=== PATIENT | female | born 1990 | race Caucasian/White ===

== ENCOUNTER 2022-05-26 07:59 | Outpatient (CLI) | payer OTHER, SELFPAY ==
[2022-05-26 08:25] LABS: Basophils Percent Auto 0.5 % (0.2-1.2); Eosinophils Absolute Auto 0.1 K/mm3 (0-0.3); Eosinophils Percent Auto 1.6 % (0-4.4); Hematocrit 39.5 % (37.0-47.0); Hemoglobin 12.8 g/dL (12.0-15.0); Immature Granulocyte Absolute 0.01 K/mm3 (0.00-0.031); Immature Granulocyte Percent A 0.2 % (0-0.5); Lymphocytes Absolute Auto 1.87 K/mm3 (0.9-3.2); Lymphocytes Percent Auto 30.3 % (18.3-44.2); Mean Corpuscular HGB Conc 32.4 g/dl (32-36); Mean Corpuscular Hemoglobin 30.4 pg (26-34); Mean Corpuscular Volume 93.8 fl (80-100); Mean Platelet Volume 9.5 fl (7.4-10.4); Monocytes Absolute Auto 0.5 K/mm3 (0.1-0.6); Monocytes Percent Auto 8.6 % (2.6-8.5); Neutrophils Absolute Auto 3.6 K/mm3 (1.3-6.7); Neutrophils Percent Auto 58.8 % (45.5-73.1); Platelet Count Result 284 k/mm3 (150-375); Red Blood Count 4.21 M/mm3 (4.2-5.4); Red Cell Distribution Width 12.9 % (11.5-14.5); White Blood Count 6.2 K/mm3 (4.5-10.0)
[2022-05-26 08:37] LABS: Alanine Aminotransferase 17 U/L (6-35); Albumin Level 4.2 g/dL (3.5-5.1); Alkaline Phosphatase 64 U/L (38-126); Anion Gap 10 mmol/L (8-16); Aspartate Amino Transferase 17 U/L (14-36); Bilirubin,Total 0.5 mg/dL (0.2-1.3); Blood Urea Nitrogen 9 mg/dL (7-17); Calcium 8.9 mg/dL (8.4-10.2); Carbon Dioxide 25 mmol/L (22-30); Chloride 105 mmol/L (98-107); Cholesterol 199 mg/dL (0-200); Estimated Glomerular Filt Rate > 60; Glucose 106 mg/dL (65-110); HDL Direct 45 mg/dL; Potassium 3.5 mmol/L (3.4-5.0); Sodium 140 mmol/L (137-145); Triglycerides 118 mg/dL (<150)
[2022-05-26 08:47] LABS: LDL Cholesterol Direct 121 mg/dL
[2022-05-26 09:43] LABS: Free T4 Free Thyroxine Reflex 0.55 ng/dL (0.78-2.19)
== END 2022-05-26 08:00 | disposition home or self-care (01) ==
PROVIDERS: PCP Family Medicine; Visit Provider Physician Assistant
DX: F41.1 Generalized anxiety disorder (principal); Z13.220 Encounter for screening for lipoid disorders
CPT/HCPCS: 36415; 80053; 80061; 84439; 84443; 85025

== ENCOUNTER 2022-12-15 09:20 | Outpatient (CLI) | payer OTHER, SELFPAY ==
[2022-12-15 09:56] LABS: Alanine Aminotransferase 16 U/L (6-35); Albumin Level 4.4 g/dL (3.5-5.1); Alkaline Phosphatase 76 U/L (38-126); Anion Gap 6 mmol/L (8-16); Aspartate Amino Transferase 15 U/L (14-36); Bilirubin,Total 0.5 mg/dL (0.2-1.3); Blood Urea Nitrogen 11 mg/dL (7-17); Calcium 9.1 mg/dL (8.4-10.2); Carbon Dioxide 28 mmol/L (22-30); Chloride 105 mmol/L (98-107); Estimated Glomerular Filt Rate > 60; Glucose 104 mg/dL (65-110); Potassium 4.1 mmol/L (3.4-5.0); Sodium 139 mmol/L (137-145)
[2022-12-15 10:27] LABS: Total Triiodothyronine (T3) 0.91 NG/ML (0.97-1.69)
[2022-12-15 10:28] LABS: Free T4 Free Thyroxine 0.98 ng/mL (0.78-2.19)
== END 2022-12-15 09:21 | disposition home or self-care (01) ==
PROVIDERS: Physician Assistant; PCP Family Medicine; Visit Provider Nurse Practitioner Gerontology
DX: F10.21 Alcohol dependence, in remission (principal); E03.9 Hypothyroidism, unspecified
CPT/HCPCS: 36415; 80053; 84439; 84443; 84480

== ENCOUNTER 2023-04-02 15:39 | Outpatient (CLI) | payer OTHER, SELFPAY ==
[2023-04-02 17:12] LABS: Total Triiodothyronine (T3) 0.96 NG/ML (0.97-1.69)
[2023-04-02 17:40] LABS: Free T4 Free Thyroxine 1.12 ng/mL (0.78-2.19)
== END 2023-04-02 15:40 | disposition home or self-care (01) ==
PROVIDERS: PCP Family Medicine; Visit Provider Family Medicine
DX: E03.9 Hypothyroidism, unspecified (principal)
CPT/HCPCS: 36415; 84439; 84443; 84480

== ENCOUNTER 2023-04-07 08:21 | Outpatient (CLI) | payer OTHER, SELFPAY ==
[2023-04-07 09:03] LABS: Basophils Percent Auto 0.6 % (0.2-1.2); Eosinophils Absolute Auto 0.1 K/mm3 (0-0.3); Eosinophils Percent Auto 1.8 % (0-4.4); Hematocrit 40.9 % (37.0-47.0); Hemoglobin 13.2 g/dL (12.0-15.0); Immature Granulocyte Absolute 0.02 K/mm3 (0.00-0.031); Immature Granulocyte Percent A 0.3 % (0-0.5); Lymphocytes Absolute Auto 2.26 K/mm3 (0.9-3.2); Lymphocytes Percent Auto 33.2 % (18.3-44.2); Mean Corpuscular HGB Conc 32.3 g/dl (32-36); Mean Corpuscular Hemoglobin 29.4 pg (26-34); Mean Corpuscular Volume 91.1 fl (80-100); Mean Platelet Volume 9.3 fl (7.4-10.4); Monocytes Absolute Auto 0.6 K/mm3 (0.1-0.6); Monocytes Percent Auto 9.3 % (2.6-8.5); Neutrophils Absolute Auto 3.7 K/mm3 (1.3-6.7); Neutrophils Percent Auto 54.8 % (45.5-73.1); Platelet Count Result 269 k/mm3 (150-375); Red Blood Count 4.49 M/mm3 (4.2-5.4); Red Cell Distribution Width 12.4 % (11.5-14.5); White Blood Count 6.8 K/mm3 (4.5-10.0)
== END 2023-04-07 08:22 | disposition home or self-care (01) ==
PROVIDERS: PCP Family Medicine; Visit Provider Physician Assistant
DX: R53.83 Other fatigue (principal); N92.0 Excessive and frequent menstruation with regular cycle
CPT/HCPCS: 36415; 82607; 85025

== ENCOUNTER 2024-11-08 07:08 | Outpatient (CLI) | payer BC, SELFPAY ==
--- OUTSIDE RECORDS SUMMARY | 2024-11-08 07:16 | XMS_ITS ---
Author Organization [facility] [employer] [facility] Address [facility] [facility] [address] [place] [address] Care Team Providers Care Feed Crusher Name Role Phone Lele LI, Yolanda Primary Care Provider Luz Diana Unavailable [phone] Allergies No Known Allergies REASON FOR VISIT follow up Medications Medication SIG (Take, Route, Fr equency, Duration) Notes Start Date End Date Status Levo-T 100 MCG 1 tablet in the morn ing on an empty stomach Orally Once a day Active FLUoxetine HCl 10 MG 1 capsule Oral Once a day for 90 days Active Propranolol HCl 10 MG 1 tablet Orally tw ice a day for 30 days Active Atomoxetine HCl 60 MG 1 capsule in the m orning Orally Once a day for 90 days 08/11/2024 12/05/2024 Active Social History Tobacco Use: Social History Observation Description Date Details (start date - stop date) Never Smoker NA - NA Sex Assigned At : Social History Observation Description Sex Assigned At Female Tobacco Control (Standard) Question Answer Notes Tobacco use: Nonsmoker AUDIT-C (Standard) Question Answer Notes Did you have a drink containing alcohol in the p ast year? No Encounters Encounter Location Date Provider Diagnosis [facility] [employer] [facility] [address] [facility] [address] [address] 09/06/2024 Luz Plascencia FELIX (generalized anxiety disorder) F41.1 ; MDD (major depressive disorder), recurrent episode, mild F33.0 and ADHD (attention deficit hyperactivity disorder), combined type F90.2 Assessments Encounter Date Diagnosis (ICD Code) Assessment Notes Treatment Notes Treatment Clinical Notes Section Notes 09/06/2024 FELIX (generalized anxiety disorder) (ICD-10 - F41.1) SSRI/SNRI side effects discussed including but not limited to, gastric upset, nausea, vomiting, diarrhea and/or constipation, weight changes, sexual side effects including loss of libido, increased suicidal thoughts/behavior s in children and young adults, and serotonin syndrome. 09/06/2024 MDD (major depressive disorder), recurrent episode, mild (ICD-10 - F33.0) 09/06/2024 ADHD (attention deficit hyperactivity disorder), combined type (ICD-10 - F90.2) Discussed risks/benefits/al ternatives to atomoxetine, including GI side effects, weight loss, irritability, constipation, sexual dysfunction, increase in blood pressure and liver damage. Patient denies any h/o cardiovascular disease, including hypertension, tachyarrhythmias. 09/06/2024 Other Increase atomoxetine to 60mg daily for ADHD management Patient educated on all medications including potential benefits, side effects, risks. Educated on proper dosing schedule and importance of compliance. Encouraged to establish with counseling; supportive therapy provided. -Assessment and treatment plan reviewed with patient. -Compliance with treatment plan importance discussed. -Discussed the risks/benefits of this medication -Discussed medication side effects. -Contact office if symptoms worsen. -Discussed that it can take up to 6-8 weeks to see full therapeutic effects of psychotropic medications. -Crisis prevention hotline 988. Plan Of Treatment Medication Medication Name Sig Start Date Stop Date Notes FLUoxetine HCl 10 MG 1 capsule Oral Once a day for 90 days Propranolol HCl 10 MG 1 tablet Orally tw ice a day for 30 days Atomoxetine HCl 60 MG 1 capsule in the m orning Orally Once a day for 90 days 08/11/2024 12/05/2024 Treatment Notes Assessment Notes FELIX (generalized anxiety disorder) SSRI/ SNRI side effects discussed including but not limited to, gastric upset, nausea, vomiting, diarrhea and/or constipation, weight changes, sexual side effects including loss of libido, increased suicidal thoughts/behaviors in children and young adults, and serotonin syndrome. ADHD (attention deficit hype ractivity disorder), combined type Discussed risks/benefits/alternatives to atomoxetine, including GI side effects, weight loss, irritability, constipation, sexual dysfunction, increase in blood pressure and liver damage. Patient denies any h/o cardiovascular disease, including hypertension, tachyarrhythmias. Other Increase atomoxetine to 60mg daily for ADHD management Patient educated on all medications including potential benefits, side effects, risks. Educated on proper dosing schedule and importance of compliance. Encouraged to establish with counseling; supportive therapy provided. Next Appt Details Follow Up: 4 Weeks, Reason: medication follow up Provider Name:Luz Kathya Plascencia, 11/16/2024 08:00:00 AM, [address], [facility] [address], [place], [address], Progress Notes * Amauri SOUSAOB:1990 (34 yo F)Acc No.[id number]:09/06/2024 Patient: Rachel DUDLEY Provider: FLORA QUICK :1990 A ge:34 Y S ex:Female Date:09/06/2024 Phone: Address:[address] [place] [address], [address], [facility] Pcp:Yolanda Royal MD Subjective: * Chief Complaints: * F ollow up * HPI: D epression Screening: FELIX-7 (2018 Edition) F eeling nervous, anxious, or on edge?More than half the days, N ot being able to stop or control worrying M ore than half the days, W orrying too much about different things M ore than hafl the days, T rouble relaxing M ore than half the days, B eing so restless that it is hard to sit still N early every day, B ecoming easily annoyed or irritable S everal days, F eeling afraid as if something awful might happen N early every day. C [place]-Suicide Severity Rating Scale: Suicide Risk (CSRS-screener) i n the past one month Have you wished you were or wished you could go to sleep and not wake up? N o, i n the past one month Have you actually had any thoughts of killing yourself? N o, H ave you ever done anything, started to do anything, or prepared to do anything to end your life? N o. D epression screening: PHQ-9 L ittle interest or pleasure in doing things S everal days, F eeling down, depressed, or hopeless S everal days, T rouble falling or staying asleep, or sleeping too much N ot at all, F eeling tired or having little energy M ore than half the days, P oor appetite or overeating M ore than half the days, F eeling bad about yourself or that you are a failure, or have let yourself or your family down S everal days, T rouble concentrating on things, such as reading the newspaper or watching television N early every day, M oving or speaking so slowly that other people could have noticed; or the opposite, being so fidgety or restless that you have been moving around a lot more than usual M ore than half the days, T houghts that you would be better off or of hurting yourself in some way N ot at all. I ntervention D epression Screening Findings P ositve, F ollow-Up for Depression M [facility] treatment assessment, Patient follow-up to return when and if necessary, S uicide Risk Assessment Performed 0 09/06/2024 csrs negative , A dditional Evaluation for Depression P sychiatric interview and evaluation, N ashley of the standardized tool used for adult depression screening: [facility] (PHQ-[facility]). P ast Psychiatric Hospitalizations: Previous psychiatric hospitalizations P revious Psychiatric Hospitalization N o. P ast History of Suicidal attempt H ave you ever attempted suicide in the past N o. Social hx: Single. Lives alone. No children. Parents and boyfriend are support system. Employed at a gym. Medical hx: hypothyroid. denies history of head trauma or seizures. Legal hx: denies Past psychiatric hx- Hx ECT/TMS/esketamine: none Past [facility] admissions/IOP/PHP: rehab in 2021. Previous suicide attempts: denies Family psychiatric hx: Mother- depression, BPD, anxiety (hx ECT); father- anxiety. Previous medications: Fluoxetine (tremors at high dose), Buspar, Citalopram (didnt help). H istory of Presenting Problem: Anxiety w ith excessive worry, with panic attacks, with restlessness, with low energy, which has been long-standing. D epression w ith sad mood, with isolative behavior, with decreased concentration, with decreased energy, with feeling of hopelessness and helplessness- triggered by anxiety. . M ood lability n o hx bess . P sychosis n o hx psychosis . S uicidal ideation d enies . S ubstance abuse Alcohol and cocaine dependence- sober since 2021. Cannabis nightly . A DHD f ails to give close attention to details or makes careless mistakes in schoolwork, work, or other activities, has difficulty sustaining attention in tasks or play activity, forgetful in daily activities, easily distracted by extraneous stimuli, has difficulty organizing tasks and activities, fidgets with hands or feet or squirms in seat. Here for follow up. Atomoxetine started last apt. States I can concentrate better . 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 Reporting some depression, low motivation. Also endorses anxiety, particularily when she is at home alone. Panic attacks happening about three times weekly, mostly at night. Sleep is good, getting about 8-10 hours nightly. Energy is fair. Appetite is decreased, also has started on thyroid medication, has lost about 10 pounds. P sychotherapy with Med eval: Therapy with Med eval P sychotherapy with Medication management Y es, P sychotherapy done Time Spent Minute 1 6 Min, T ype of therapy done S upportive Therapy. * ROS: G eneral / Constitutional: Patient denies c hange in appetite, headache, sleep disturbance, weight gain, weight loss. P sychiatric: Patient denies p sychosis, suicidal thoughts, bess, delusions, auditory / visual hallucinations. P atient complains of p anic attacks, difficulty concentrating, anxiety, depressed mood. [facility] for details. * Medical History: * Surgical History: T ibia repair * Hospitalization/Major Diagno stic Procedure: R ehab June 2022 * Family History: F ather: Anxiety Disorder. M aternal Aunt: None. M aternal Uncle: None. P aternal Aunt: None. P aternal Uncle: None. M other: Anxiety Disorder, hx ECT treatment. P aternal Grandfather: None. P aternal Grandmother: None. M aternal Grandfather: None. M aternal Grandmother: None. B rother: None. S ister: None. S on: None. D stephane: None. * Social History: T obacco Use: T obacco Control (Standard) T obacco use: N onsmoker. D rug/Alcohol: A VERONICA-C (Standard) D id you have a drink containing alcohol in the past year? N o.? M iscellaneous: A dvance Care Planning A re you your own decision-maker Y es, D o you have Power of Portable Sawyer for Health or Medical? Y es. S ocial History: Tonya Cabezas arital Status: Rush ocampo. * Medications: T akingLevo-T 100 MCG Tablet 1 tablet in the morning on an empty stomach Orally Once a day FLUoxetine HCl 10 MG Capsule 1 capsule Oral Once a day Atomoxetine HCl 40 MG Capsule 1 capsule in the morning Orally Once a day , stop date 10/11/2024Taking Levo-T 100 MCG Tablet 1 tablet in the morning on an empty stomach Orally Once a day Taking FLUoxetine HCl 10 MG Capsule 1 capsule Oral Once a day Taking Atomoxetine HCl 40 MG Capsule 1 capsule in the morning Orally Once a day , stop date 10/11/2024Not-TakingPropranolol HCl 10 MG Tablet 1 tablet Orally twice a day Medication List reviewed and reconciled with the patientNot-Taking Propranolol HCl 10 MG Tablet 1 tablet Orally twice a day Medication List reviewed and reconciled with the patient * Allergies: N .K.D.A.no[Allergies Verified] Objective: * Vitals: * Examination: P sychiatry: Appearance: w ell-groomed. Abnormal body movements: n one. Affect / mood: a nxious. Attention: g ood. Attitude: c ooperative. Homicidal ideation: n one. Suicidal ideation: n one. Degree of awareness of surroundings: w ithin normal limits.? Delusions: n o. Hallucinations: n o. Insight: g ood. Judgement: g ood. Orientation: a wake, alert and oriented x 3. Perceptual disorders: n o perceptual disorder noted. Psychomotor activity: w ithin normal range. Speech / language: n ormal rate, volume, and articulation (RVR), clear and coherent, appropriate pitch/modulation. Thought content: a ppropriate. Thought process: i ntact. Assessment: * Assessment: 1. G AD (generalized anxiety disorder) - F41.1 (Primary) 2 . M DD (major depressive disorder), recurrent episode, mild - F33.0 3 . A DHD (attention deficit hyperactivity disorder), combined type - F90.2 Plan: * Treatment: 2. A DHD (attention deficit hyperactivity disorder), combined type Increase Atomoxetine HCl Capsule, 60 MG, 1 capsule in the morning, Orally, Once a day, 90 days, 90 Capsule, Refills 0. Notes: Discussed risks/benefits/alternatives to atomoxetine, including GI side effects, weight loss, irritability, constipation, sexual dysfunction, increase in blood pressure and liver damage. Patient denies any h/o cardiovascular disease, including hypertension, tachyarrhythmias. 3. O thers Notes: Increase atomoxetine to 60mg daily for ADHD management Patient educated on all medications including potential benefits, side effects, risks. Educated on proper dosing schedule and importance of compliance. Encouraged to establish with counseling; supportive therapy provided. Clinical Notes: -Assessment and treatment plan reviewed with patient. -Compliance with treatment plan importance discussed. -Discussed the risks/benefits of this medication -Discussed medication side effects. -Contact office if symptoms worsen. -Discussed that it can take up to 6-8 weeks to see full therapeutic effects of psychotropic medications. -Crisis prevention hotline 988. * Procedure Codes: 9 6127 BEHAV ASSMT W/SCORE & DOCD/STAND [id number] PSYCHOTHERAPY W/PATIENT W/E&M SRVCS 30 [id number] VISIT COMPLEXITY INHERENT TO ONGOING CARE RELATED TO A PATIENT'S SINGLE, SERIOUS CONDITION OR A COMPLEX [id number] CLIN DEPRESSION SCREEN DOC * Follow Up: 4 Weeks (Reason: medication follow up) * Billing Information: * Visit Code: 69967 OFFICE OUTPATIENT VISIT 25 MINUTES DETAILED HISTORY AND EXAM/MODERATE MEDICAL DECISION MAKING. * Procedure Codes: 90611 BEHAV ASSMT W/SCORE & DOCD/STAND INSTRUMENT. 67361 PSYCHOTHERAPY W/PATIENT W/E&M SRVCS 30 MIN. G2211 VISIT COMPLEXITY INHERENT TO ONGOING CARE RELATED TO A PATIENT'S SINGLE, SERIOUS CONDITION OR A COMPLEX CONDITION. G8431 CLIN DEPRESSION SCREEN DOC. * E LEAD Sign off status: Completed true * Provider: FLORA QUICK Date: 09/06/2024 Generated for Fracisco ferrer/Kay/Maren on: 0 11/08/2024 07:16 AM CDT History and Physical Notes * HPI (History of Present Illness) Category Sub-Category Detail Notes Category Not es History of Presenting Problem Anxiety with excessive worry, with p anic attacks, with restlessness, with low energy, which has been long-standing Here for follow up. Atomoxetine started last apt. States I can concentrate better . 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 Reporting some depression, low motivation. Also endorses anxiety, particularily when she is at home alone. Panic attacks happening about three times weekly, mostly at night. Sleep is good, getting about 8-10 hours nightly. Energy is fair. Appetite is decreased, also has started on thyroid medication, has lost about 10 pounds. Depression with sad mood, with isolative behavior, with decreased concentration, with decreased energy, with feeling of hopelessness and helplessness- triggered by anxiety. Substance abuse Alcohol and cocaine dependence- sober since 2021. Cannabis nightly Suicidal ideation denies Psychosis no hx psychosis Mood lability no hx bess ADHD fails to give close attention to details or makes careless mistakes in schoolwork, work, or other activities, has difficulty sustaining attention in tasks or play activity, forgetful in daily activities, easily distracted by extraneous stimuli, has difficulty organizing tasks and activities, fidgets with hands or feet or squirms in seat Past Psychiatric Hospitalizations Previous psychiatric hospitalizations Previous Psychiatric Hospitalization: No Social hx: Single. Lives alone. No children. Parents and boyfriend are support system. Employed at a gym. Medical hx: hypothyroid. denies history of head trauma or seizures. Legal hx: denies Past psychiatric hx- Hx ECT/TMS/esketamine: none Past [facility] admissions/IOP/PHP: rehab in 2021. Previous suicide attempts: denies Family psychiatric hx: Mother- depression, BPD, anxiety (hx ECT); father- anxiety. Previous medications: Fluoxetine (tremors at high dose), Buspar, Citalopram (didnt help). Past History of Suicidal attempt Have yo u ever attempted suicide in the past: No Depression screening PHQ-9 Little inte rest or pleasure in doing things: Several days Feeling down, depressed, or hopeless: Se veral days Trouble falling or staying asleep, or sl eeping too much: Not at all Feeling tired or having little energy: M ore than half the days Poor appetite or overeating: More than h alt[place] the days Feeling bad about yourself o r that you are a failure, or have let yourself or your family down: Several days Trouble concentrating on thi ngs, such as reading the newspaper or watching television: Nearly every day Moving or speaking so slowly that other people could have noticed; or the opposite, being so fidgety or restless that you have been moving around a lot more than usual: More than half the days Thoughts that you would be b panchito off or of hurting yourself in some way: Not at all Intervention Depression Screening Findings: P ositve Follow-Up for Depression: [facility] treatment assessment, Patient follow-up to return when and if necessary Suicide Risk Assessment Performed: 09/06 csrs negative Additional Evaluation for De pression: Psychiatric interview and evaluation Name of the standardized too l used for adult depression screening:: Patient Health Questionnaire (PHQ-9) Depression Screening FELIX-7 (2018 Edition) Feelin g nervous, anxious, or on edge: More than half the days Not being able to stop or control worryi ng: More than half the days Worrying too much about different things : More than hafl the days Trouble relaxing: More than half the day s Being so restless that it is hard to sit still: Nearly every day Becoming easily annoyed or irritable: Se veral days Feeling afraid as if something awful octavia ht happen: Nearly every day Psychotherapy with Med eval Therapy with Med owen l Psychotherapy with Medication management: Yes Psychotherapy done Time Spent Minute: 16 Min Type of therapy done: Supportive Therapy [place]-Suicide Severity Rating Scale Suicide Risk (CSRS-screener) in the past one month Have you wished you were or wished you could go to sleep and not wake up?: No in the past one month Have y ou actually had any thoughts of killing yourself?: No Have you ever done anything, started to do anything, or prepared to do anything to end your life?: No Examination Category Sub-Category Detail Notes Category Not es Psychiatry Appearance: well-groomed Attitude: cooperative Psychomotor activity: within normal rang e Abnormal body movements: none Attention: good Degree of awareness of surroundings: wit hin normal limits Orientation: awake, alert and brayden ented x 3 Affect / mood: anxious Speech / language: normal rate, volume, and articulation (RVR), clear and coherent, appropriate pitch/modulation Insight: good Judgement: good Thought process: intact Thought content: appropriate Perceptual disorders: no perceptual diso rder noted Suicidal ideation: none Homicidal ideation: none Delusions: no Hallucinations: no
--- OUTSIDE RECORDS SUMMARY | 2024-11-08 07:16 | XMS_ITS ---
Author Organization [facility] [employer] [facility] Address [address] [place] [address] Care Team Providers Care Vendor Relationship Manager Name Role Phone Lele LI, Yolanda Primary Care Provider Collette Luz Wheeler Unavailable [phone] REASON FOR VISIT FLUoxetine Medications Medication SIG (Take, Route, Fr equency, Duration) Notes Start Date End Date Status FLUoxetine HCl 40 MG 1 capsule Oral Once a day for 90 days Active Social History Sex Assigned At : Social History Observation Description Sex Assigned At Female Encounters Encounter Location Date Provider Diagnosis [facility] [employer] [facility] [address] [place] [address] 09/29/2024 Luz Plascencia FELIX (generalized anxiety disorder) F41.1 Assessments Encounter Date Diagnosis (ICD Code) Assessment Notes Treatment Notes Treatment Clinical Notes Section Notes 09/29/2024 FELIX (generalized anxiety disorder) (ICD-10 - F41.1) Plan Of Treatment Medication Medication Name Sig Start Date Stop Date Notes FLUoxetine HCl 40 MG 1 capsule Oral Once a day for 90 days Next Appt Details Provider Name:Luz Plascencia, 11/16/2024 08:00:00 AM, [address], [address], [place], [address], Progress Notes * Amauri SOUSAOB:1990 (34 yo F)Acc No.[id number]:09/29/2024 Patient: Rachel DUDLEY :1990 A ge:34 Y S ex:Female Phone: Address:[address] [facility], [place], [address] * Refills Refill FLUoxetine HCl Capsule, 40 MG, Oral, 90, 1 capsule, Once a day, 90 days, Refills=0 Subjective: * Chief Complaints: * F LUoxetine * Medical History: * Surgical History: * Hospitalization/Major Diagno stic Procedure: * Medications: Objective: * Vitals: * Physical Examination: Assessment: * Assessment: 1. G AD (generalized anxiety disorder) - F41.1 Plan: * Treatment: * Procedure Codes: * true * Date: Generated for Fracisco ferrer/Kay/Maren on: 0 11/08/2024 07:16 AM CDT
--- OUTSIDE RECORDS SUMMARY | 2024-11-08 07:17 | XMS_ITS ---
Author Organization [facility] [employer] [facility] Address [facility] [address] [facility] [address] [place] [address] Care Team Providers Care Web Graphic Designer Name Role Phone Lele LI, Yolanda Primary Care Provider Collette Lzu Wheeler Unavailable [phone] REASON FOR VISIT Late cancellation Social History Sex Assigned At : Social History Observation Description Sex Assigned At Female Encounters Encounter Location Date Provider Diagnosis [facility] [place] [id number] [facility] [address] [place] [address] 10/18/2024 Luz Plascencia Plan Of Treatment Next Appt Details Provider Name:Luz Plascencia, 11/16/2024 08:00:00 AM, [address], [facility] [address], [place], [address], Progress Notes * Nazia SOUSAOvidioOB:1990 (34 yo F)Acc No.[id number]:10/18/2024 Patient: Rachel DUDLEY Provider: FLORA QUICK :1990 A ge:34 Y S ex:Female Date:10/18/2024 Phone: Address:[address], [id number] Pcp:Yolanda Royal MD Subjective: * Chief Complaints: * 1 . Late cancellation. * Medical History: Objective: * Vitals: Assessment: Plan: * Treatment: * Procedure Codes: N S NO SHOW * Billing Information: * Visit Code: * Procedure Codes: NS NO SHOW. * PROJECTOR OPERATOR Sign off status: Completed true * Provider: FLORA QUICK Date: 0 10/18/2024 Generated for Fracisco ferrer/Kay/Maren on: 0 11/08/2024 07:16 AM CDT
--- OUTSIDE RECORDS SUMMARY | 2024-11-08 07:17 | XMS_ITS | Patient Health Record ---
Author Organization [facility] Address [address] [facility] [address] [place] [address] Care Team Providers Care Keymodule Assembly Supervisor Name Role Phone Yolanda Royal MD Primary Care Provider Collette Luz Wheeler Unavailable [phone] Cecil Duke Unavailable [phone] Allergies No Known Allergies Results Component Value Reference Range Notes UDT Reviewed date:04/27/2024 05:55:40 PM Interpretation: Performing Lab: Notes/Report: THC P 0 - 50 ng/ml Cocaine N 0 - 300 ng/ml Amphetamine N 0 - 1000 ng/ml Buprenorphine (BUP) N 0 - 10 ng/ml Secobarbital (Bar) N 0 - 300 ng/ml Oxazepam (BZO) N 0 - 300 ng/ml 8-gprjjdgzid-5,6-rwyhyxkx-4,3-diphenylpyrrolidine (DAVID P) N 0 - 300 ng/ml Methamphetamine (MET) N 0 - 1000 ng/ml Methylenedioxymethamphetamine (MDMA) N 0 - 500 ng/ml Morphine (MOP 300/[id number]) N 0 - 300 ng/ml Methadone (MTD) N 0 - 300 ng/ml Phencyclidine (PCP) N 0 - 25 ng/ml Nortriptyline (TCA) N 0 - 1000 ng/ml Oxycodone N 0 - 300 ng/ml x N 0 - 300 ng/ml UDT Reviewed date:04/21/2024 08:47:32 PM Interpretation: Performing Lab: Notes/Report: THC P 0 - 50 ng/ml Cocaine N 0 - 300 ng/ml Amphetamine N 0 - 1000 ng/ml Buprenorphine (BUP) N 0 - 10 ng/ml Secobarbital (Bar) N 0 - 300 ng/ml Oxazepam (BZO) N 0 - 300 ng/ml 3-pefjkxorrh-3,5-snoeipdj-6,3-diphenylpyrrolidine (DAVID P) N 0 - 300 ng/ml Methamphetamine (MET) N 0 - 1000 ng/ml Methylenedioxymethamphetamine (MDMA) N 0 - 500 ng/ml Morphine (MOP 300/[id number]) N 0 - 300 ng/ml Methadone (MTD) N 0 - 300 ng/ml Phencyclidine (PCP) N 0 - 25 ng/ml Nortriptyline (TCA) N 0 - 1000 ng/ml Oxycodone N 0 - 300 ng/ml x N 0 - 300 ng/ml Reason For Referral No Information Medications Medication SIG (Take, Route, Fr equency, Duration) Notes Start Date End Date Status FLUoxetine HCl 40 MG 1 capsule Oral Once a day for 90 days Active Levo-T 100 MCG 1 tablet in the morn ing on an empty stomach Orally Once a day Active Propranolol HCl 10 MG 1 tablet [...] alcohol in the p ast year? No Problems Problem Type SNOMED Code ICD Code Onset Dates Problem Status W/U Status Risk Notes Problem Generalized anxiety disorder (37140921) FELIX (generalized anxiety disorder) (F41.1) Active confirmed Problem Attention deficit hyperactivity disorder (117745536) ADHD (attention deficit hyperactivity disorder), combined type (F90.2) Active confirmed Problem Mild recurrent major depression (80007956) MDD (major depressive disorder), recurrent episode, mild (F33.0) Active confirmed Vital Signs Heart Rate 73 /min 04/21/2024 Height-cm 162.56 cm 04/21/2024 Blood pressure diastolic 75 mm Hg 04/21/2024 Weight-kg 60.33 kg 04/21/2024 Height 64 in 04/21/2024 Blood pressure systolic 112 mm Hg 04/21/2024 Weight 133 lbs 04/21/2024 BMI 22.83 kg/m2 04/21/2024 Procedures Procedure Date Ordered Date Performed Result Body Sit e ADHD Testing 04/21/2024 N/A Encounters Encounter Location Date Provider Diagnosis [address] [facility] [address] [place] [address] 04/21/2024 Luz Plascencia FELIX (generalized anxiety disorder) F41.1 ; MDD (major depressive disorder), recurrent episode, mild F33.0 and ADHD (attention deficit hyperactivity disorder), combined type F90.[address] [facility] [address] [place] [address] 04/27/2024 Cecilisael Duke ADHD (attention defi cit hyperactivity disorder) F90.[address] [facility] [address] [place] [address] 05/02/2024 Luz Plascencia FELIX (generalized anxiety disorder) F41.1 ; MDD (major depressive disorder), recurrent episode, mild F33.0 and ADHD (attention deficit hyperactivity disorder), combined type F90.[address] [facility] [address] [place] [address] 05/30/2024 Luz Plascencia [address] [facility] [address] [place] [address] 09/06/2024 Luz Plascencia FELIX (generalized anxiety disorder) F41.1 ; MDD (major depressive disorder), recurrent episode, mild F33.0 and ADHD (attention deficit hyperactivity disorder), combined type F90.[address] [facility] [address] [place] [address] 10/18/2024 Luz Cartagenaag [address] [facility] [address] [place] [address] 07/11/2024 Luz Plascencia ADHD (attention defi cit hyperactivity disorder), combined type F90.2 [place] [address] [facility] [address] [facility] [address] [place] [address] 07/26/2024 Luz Plascencia [place] [address] [facility] [address] [facility] [address] [place] [address] 08/11/2024 Luz Plascencia ADHD (attention defi cit hyperactivity disorder), combined type F90.[address] [facility] [address] [place] [address] 09/29/2024 Luz Plascencia FELIX (generalized anxiety disorder) F41.1 Assessments Encounter Date Diagnosis (ICD Code) Assessment Notes Treatment Notes Treatment Clinical Notes Section Notes 07/11/2024 ADHD (attention deficit hyperactivity disorder), combined type (ICD-10 - F90.2) 08/11/2024 ADHD (attention deficit hyperactivity disorder), combined type (ICD-10 - F90.2) 04/21/2024 FELIX (generalized anxiety disorder) (ICD-10 - F41.1) 09/29/2024 FELIX (generalized anxiety disorder) (ICD-10 - F41.1) 09/06/2024 FELIX (generalized anxiety disorder) (ICD-10 - F41.1) SSRI/SNRI side effects discussed including but not limited to, gastric upset, nausea, vomiting, diarrhea and/or constipation, weight changes, sexual side effects including loss of libido, increased suicidal thoughts/behavior s in children and young adults, and serotonin syndrome. 04/21/2024 MDD (major depressive disorder), recurrent episode, mild (ICD-10 - F33.0) 04/27/2024 ADHD (attention deficit hyperactivity disorder) (ICD-10 - F90.9) 05/02/2024 FELIX (generalized anxiety disorder) (ICD-10 - F41.1) 04/21/2024 ADHD (attention deficit hyperactivity disorder), combined type (ICD-10 - F90.2) 05/02/2024 MDD (major depressive disorder), recurrent episode, mild (ICD-10 - F33.0) 09/06/2024 MDD (major depressive disorder), recurrent episode, mild (ICD-10 - F33.0) 05/02/2024 ADHD (attention deficit hyperactivity disorder), combined type (ICD-10 - F90.2) 09/06/2024 ADHD (attention deficit hyperactivity disorder), combined type (ICD-10 - F90.2) Discussed risks/benefits/al ternatives to atomoxetine, including GI side effects, weight loss, irritability, constipation, sexual dysfunction, increase in blood pressure and liver damage. Patient denies any h/o cardiovascular disease, including hypertension, tachyarrhythmias. 04/21/2024 Other Start propranolol 10mg BID PRN for anxiety. Continue buspar, fluoxetine per PCP for now. Patient educated on all medications including potential benefits, side effects, risks. Educated on proper dosing schedule and importance of compliance. Schedule for ADHD evaluation to rule in or rule out diagnosis. 05/02/2024 Other ADHD evaluation reviewed, supportive of diagnosis in conjunction with reported symptoms and history. Start atomoxetine 25mg daily for two weeks then 40mg daily. Stopped using cannabis, consider stimulant in future if necessary. Patient educated on all medications including potential benefits, side effects, risks. Educated on proper dosing schedule and importance of compliance. Discussed risks/benefits/al ternatives to atomoxetine, including GI [...] effects of psychotropic medications. -Crisis prevention hotline 783. Plan Of Treatment Pending Test Test Name Order Date ADHD Testing 04/21/2024 Next Appt Details Provider Name:Luz Plascencia, 11/16/2024 08:00:00 AM, [address] [facility] [address], [facility] [address], [place], [address], Insurance Providers Payer Name Payer Address Payer Phone Subscriber Number Group Number Insured Name Patient Relationship to Insured Coverage Start Date Coverage End Date [facility] [address] [place] [address] [id number] Rachel Sousa Self - patient is the insured Medical (General) History Medical History History ICD Code Past Psychiatric History: An xiety Disorder,Panic Disorder,Major Depressive Episode abdominal aortic aneurysm: No atrial fibrillation: No chronic fatigue syndrome: No essential tremor: No hyperlipidemia: No hypertension: No Parkinson's disease: No restless leg syndrome: Yes stroke: No subdural hematoma: No type 1 diabetes mellitus: No type 2 diabetes mellitus: No vitamin B12 deficiency: No vitamin D deficiency: No Surgical History Surgery Date(Month/Year) Tibia repair Hospitalization History Reason Date(Month/Year) Rehab June 2022
[2024-11-08 07:46] LABS: Basophils Percent Auto 0.6 % (0.2-1.2); Eosinophils Absolute Auto 0.2 K/mm3 (0-0.3); Eosinophils Percent Auto 2.4 % (0-4.4); Hematocrit 39.2 % (37.0-47.0); Hemoglobin 12.9 g/dL (12.0-15.0); Immature Granulocyte Absolute 0.01 K/mm3 (0.00-0.031); Immature Granulocyte Percent A 0.1 % (0-0.5); Lymphocytes Absolute Auto 1.94 K/mm3 (0.9-3.2); Lymphocytes Percent Auto 28.7 % (18.3-44.2); Mean Corpuscular HGB Conc 32.9 g/dl (32-36); Mean Corpuscular Hemoglobin 30.7 pg (26-34); Mean Corpuscular Volume 93.3 fl (80-100); Mean Platelet Volume 9.3 fl (7.4-10.4); Monocytes Absolute Auto 0.6 K/mm3 (0.1-0.6); Monocytes Percent Auto 8.6 % (2.6-8.5); Neutrophils Percent Auto 59.6 % (45.5-73.1); Platelet Count Result 289 k/mm3 (150-375); Red Cell Distribution Width 12.4 % (11.5-14.5); White Blood Count 6.8 K/mm3 (4.5-10.0)
[2024-11-08 08:26] LABS: Free T4 Free Thyroxine 0.91 ng/dL (0.78-2.19)
== END 2024-11-08 07:09 | disposition home or self-care (01) ==
LOC: ANHLAB 07:14
PROVIDERS: PCP Family Medicine; Visit Provider Physician Assistant
DX: R53.83 Other fatigue (principal); E07.9 Disorder of thyroid, unspecified
CPT/HCPCS: 36415; 84439; 84443; 85025

== ENCOUNTER 2025-01-05 07:22 | Outpatient (CLI) | payer BC, SELFPAY ==
--- OUTSIDE RECORDS SUMMARY | 2025-01-05 07:27 | XMS_ITS | Patient Health Record ---
Author Organization [facility] [employer] Address [address] [facility] [address] [place] [address] Care Team Providers Care Radioisotope Technician Name Role Phone Yolanda Royal MD Primary Care Provider Collette Luz Tompkins Unavailable [phone] Cecil Duke Unavailable [phone] Allergies No Known Allergies Results Component Value Reference Range Notes UDT Reviewed date:04/27/2024 05:55:40 PM Interpretation: Performing Lab: Notes/Report: THC P 0 - 50 ng/ml Cocaine N 0 - 300 ng/ml Amphetamine N 0 - 1000 ng/ml Buprenorphine (BUP) N 0 - 10 ng/ml Secobarbital (Bar) N 0 - 300 ng/ml Oxazepam (BZO) N 0 - 300 ng/ml 6-hctioedzux-0,3-rxsqoaff-5,3-diphenylpyrrolidine (DAVID P) N 0 - 300 ng/ml Methamphetamine (MET) N 0 - 1000 ng/ml Methylenedioxymethamphetamine (MDMA) N 0 - 500 ng/ml Morphine (MOP 300/[id number]) N 0 - 300 ng/ml Methadone (MTD) [...] Oxazepam (BZO) N 0 - 300 ng/ml 1-oquegdshju-3,8-bqtoxeym-1,3-diphenylpyrrolidine (DAVID P) N 0 - 300 ng/ml Methamphetamine (MET) N 0 - 1000 ng/ml Methylenedioxymethamphetamine (MDMA) N 0 - 500 ng/ml Morphine (MOP 300/OPO3602) N 0 - 300 ng/ml Methadone (MTD) [...] 1 capsule Oral Once a day for 30 days Active Levo-T 100 MCG 1 tablet in the morn ing on an empty stomach Orally Once a day Active Propranolol HCl 10 MG 1 tablet Orally tw ice a day for 30 days Active Atomoxetine HCl 60 MG 1 capsule in the m orning Orally Once a day for 30 days Ac tive Social History Tobacco Use: Social History Observation [...] Status Risk Notes Problem Generalized anxiety disorder (37327658) FELIX (generalized anxiety disorder) (F41.1) Active confirmed Problem Attention deficit hyperactivity disorder (865441993) ADHD (attention deficit hyperactivity disorder), combined type (F90.2) Active confirmed Problem Mild recurrent major depression (50965146) MDD (major depressive disorder), recurrent episode, mild [...] N/A Encounters Encounter Location Date Provider Diagnosis [facility] [address] [place] [address] 04/21/2024 Luz Kurniki FELIX (generalized anxiety disorder) F41.1 ; MDD (major depressive disorder), recurrent episode, mild F33.0 and ADHD (attention deficit hyperactivity disorder), combined type F90.2 [facility] [address] [place] [address] 04/27/2024 Cecil Duke ADHD (attention deficit hyperactivity disorder) F90.9 [facility] [address] [place] [address] 05/02/2024 Luz Kurniki FELIX (generalized anxiety disorder) F41.1 ; MDD (major depressive disorder), recurrent episode, mild F33.0 and ADHD (attention deficit hyperactivity disorder), combined type F90.2 [facility] [address] [place] [address] 05/30/2024 Luz Kurniki [facility], [facility] [address] [place] [address] 09/06/2024 Luz Kurilla FELIX (generalized anxiety disorder) F41.1 ; MDD (major depressive disorder), recurrent episode, mild F33.0 and ADHD (attention deficit hyperactivity disorder), combined type F90.2 [facility] [address] [place] [address] 10/18/2024 Luzedward Guzman [facility], [facility] [address] [place] [address] 11/16/2024 Luz Kurilla [facility], [facility] [address] [place] [address] 07/11/2024 Luz Kurilla ADHD (attention deficit hyperactivity disorder), combined type F90.2 [facility] [address] [place] [address] 07/26/2024 Luz Kurniki [facility], [facility] [address] [place] [address] 08/11/2024 Luz Kurilla ADHD (attention deficit hyperactivity disorder), combined type F90.2 [facility], [facility] [address] [place] [address] 09/29/2024 Luz Guzman FELIX (generalized anxiety disorder) F41.1 [facility] [employer] [facility] [address] [place] [address] 12/27/2024 Luz Guzman FELIX (generalized anxiety disorder) F41.1 Assessments Encounter Date Diagnosis (ICD Code) Assessment Notes Treatment Notes Treatment Clinical Notes Section Notes 08/11/2024 ADHD (attention deficit hyperactivity disorder), combined type (ICD-10 - F90.2) 07/11/2024 ADHD (attention deficit hyperactivity disorder), combined type (ICD-10 - F90.2) 04/21/2024 FELIX (generalized anxiety disorder) (ICD-10 - F41.1) 04/27/2024 ADHD (attention deficit hyperactivity disorder) (ICD-10 - F90.9) 05/02/2024 FELIX (generalized anxiety disorder) (ICD-10 - F41.1) 04/21/2024 MDD (major depressive disorder), recurrent episode, mild (ICD-10 - F33.0) 12/27/2024 FELIX (generalized anxiety disorder) (ICD-10 - F41.1) 09/29/2024 FELIX (generalized anxiety disorder) (ICD-10 - F41.1) 09/06/2024 FELIX (generalized anxiety disorder) (ICD-10 - F41.1) SSRI/SNRI side effects discussed including but not limited to, gastric upset, nausea, vomiting, diarrhea and/or constipation, weight changes, sexual side effects including loss of libido, increased suicidal thoughts/behavior s in children and young adults, and serotonin syndrome. 04/21/2024 ADHD (attention deficit hyperactivity disorder), combined type (ICD-10 - F90.2) 09/06/2024 MDD (major depressive disorder), recurrent episode, mild (ICD-10 - F33.0) 05/02/2024 MDD (major depressive disorder), recurrent episode, mild (ICD-10 - F33.0) 09/06/2024 ADHD (attention deficit hyperactivity disorder), combined type (ICD-10 - F90.2) Discussed risks/benefits/al ternatives to atomoxetine, including GI side effects, weight loss, irritability, constipation, sexual dysfunction, increase in blood pressure and liver damage. Patient denies any h/o cardiovascular disease, including hypertension, tachyarrhythmias. 05/02/2024 ADHD (attention deficit hyperactivity disorder), combined type (ICD-10 - F90.2) 04/21/2024 Other Start propranolol 10mg BID PRN [...] effects of psychotropic medications. -Crisis prevention hotline 429. Plan Of Treatment Pending Test Test Name Order Date ADHD Testing 04/21/2024 Next Appt Details Provider Name:Luz jordan, 01/27/2025 08:30:00 AM, [address], [facility] [address], [place], [address], Insurance Providers Payer Name Payer Address Payer Phone Subscriber Number Group Number Insured Name Patient Relationship to Insured Coverage Start Date Coverage End Date [facility] [address] [place] [address] [id number] Rachel Sousa Self - patient is [...]
[2025-01-05 08:22] LABS: Free T4 Free Thyroxine 1.19 ng/dL (0.78-2.19)
== END 2025-01-05 07:23 | disposition home or self-care (01) ==
LOC: ANHLAB 07:24
PROVIDERS: PCP Family Medicine; Visit Provider Student in an Organized Health Care Education/Training Program
DX: E03.9 Hypothyroidism, unspecified (principal)
CPT/HCPCS: 36415; 84439; 84443

== ENCOUNTER 2025-03-10 07:21 | Outpatient (CLI) | payer BC, SELFPAY ==
--- OUTSIDE RECORDS SUMMARY | 2025-03-10 07:24 | XMS_ITS | Patient Health Record ---
Author Organization [facility] [employer] [facility] Address [address] [facility] [address] [place] [address] Care Team Providers Care Piping Drafter Name Role Phone Yolanda Royal MD Primary Care Provider Collette Luz Tompkins Unavailable [phone] Cecil Duke Unavailable [phone] Allergies No Known Allergies Results Component Value Reference Range Notes UDT Reviewed date:04/27/2024 05:55:40 PM Interpretation: Performing Lab: Notes/Report: THC P 0 - 50 ng/ml Cocaine N 0 - 300 ng/ml Amphetamine N 0 - 1000 ng/ml Buprenorphine (BUP) N 0 - 10 ng/ml Secobarbital (Bar) N 0 - 300 ng/ml Oxazepam (BZO) N 0 - 300 ng/ml 9-bpmnjezlcy-2,4-ynhtebvs-5,3-diphenylpyrrolidine (DAVID P) N 0 - 300 ng/ml Methamphetamine (MET) N 0 - 1000 ng/ml Methylenedioxymethamphetamine (MDMA) N 0 - 500 ng/ml Morphine (MOP 300/[id number]) N 0 - 300 ng/ml Methadone (MTD) [...] Oxazepam (BZO) N 0 - 300 ng/ml 9-xibgxgyvri-8,8-idqidnir-6,3-diphenylpyrrolidine (DAVID P) N 0 - 300 ng/ml Methamphetamine (MET) N 0 - 1000 ng/ml Methylenedioxymethamphetamine (MDMA) N 0 - 500 ng/ml Morphine (MOP 300/[id number]) N 0 - 300 ng/ml Methadone (MTD) [...] 40 MG 1 capsule Oral Once a day; Duration: 30 days Active Levo-T 100 MCG 1 tablet in the morn ing on an empty stomach Orally Once a day Active Propranolol HCl 10 MG 1 tablet Orally tw ice a day; Duration: 30 days Active Atomoxetine HCl 60 MG 1 capsule in the m orning Orally Once a day; Duration: 30 days Active Social History Tobacco Use: Social History [...] Status Risk Notes Problem Generalized anxiety disorder (67447818) FELIX (generalized anxiety disorder) (F41.1) Active confirmed Problem Attention deficit hyperactivity disorder (310560530) ADHD (attention deficit hyperactivity disorder), combined type (F90.2) Active confirmed Problem MDD (major depressive disorder), recurrent episode, mild [...] N/A Encounters Encounter Location Date Provider Diagnosis [facility] [address] [place] [address] 04/21/2024 Luz Guzman FELIX (generalized anxiety disorder) F41.1 ; MDD (major depressive disorder), recurrent episode, mild F33.0 and ADHD (attention deficit hyperactivity disorder), combined type F90.2 [facility], [facility] [address] [place] [address] 04/27/2024 Cecil Duke ADHD (attention deficit hyperactivity disorder) F90.9 [facility] [address] [place] [address] 05/02/2024 Luz Guzman FELIX (generalized anxiety disorder) F41.1 ; MDD (major depressive disorder), recurrent episode, mild F33.0 and ADHD (attention deficit hyperactivity disorder), combined type F90.2 [facility] [address] [place] [address] 05/30/2024 Luz Guzman [facility], [facility] [address] [place] [address] 09/06/2024 Luz Guzman FELIX (generalized anxiety disorder) F41.1 ; MDD (major depressive disorder), recurrent episode, mild F33.0 and ADHD (attention deficit hyperactivity disorder), combined type F90.2 [facility] [address] [place] [address] 10/18/2024 Luz Guzman [facility], [facility] [address] [place] [address] 11/16/2024 Luzedward Guzman [facility], [facility] [address] [place] [address] 01/27/2025 Luz Guzman [facility], [facility] [address] [place] [address] 07/11/2024 Luz Guzman ADHD (attention deficit hyperactivity disorder), combined type F90.2 [facility], [facility] [address] [place] [address] 07/26/2024 Luz Guzman [facility], [facility] [address] [place] [address] 08/11/2024 Luz Guzman ADHD (attention deficit hyperactivity disorder), combined type F90.2 [facility] [address] [place] [address] 09/29/2024 Luz Guzman FELIX (generalized anxiety disorder) F41.1 [facility] [address] [place] [address] 12/27/2024 Luz Guzman FELIX (generalized anxiety disorder) F41.1 Assessments Encounter Date Diagnosis (ICD Code) Assessment Notes Treatment Notes Treatment Clinical Notes Section Notes 07/11/2024 ADHD (attention deficit hyperactivity disorder), combined type (ICD-10 - F90.2) 08/11/2024 ADHD (attention deficit hyperactivity disorder), combined type (ICD-10 - F90.2) 04/21/2024 FELIX (generalized anxiety disorder) (ICD-10 - F41.1) 09/29/2024 FELIX (generalized anxiety disorder) (ICD-10 - F41.1) 12/27/2024 FELIX (generalized anxiety disorder) (ICD-10 - [...] effects of psychotropic medications. -Crisis prevention hotline 663. Plan Of Treatment Pending Test Test Name Order Date ADHD Testing 04/21/2024 Insurance Providers Payer Name Payer Address Payer Phone Subscriber Number Group Number Insured Name Patient Relationship to Insured Coverage Start Date Coverage End Date [facility] [address] [place] [address] [id number] Rachel Sousa Self - patient is [...]
[2025-03-10 08:36] LABS: Free T4 Free Thyroxine 1.03 ng/dL (0.78-2.19)
[2025-03-10 08:51] LABS: Thyroid Stimulating Hormone 4.370 uIU/mL (0.465-4.680)
== END 2025-03-10 07:22 | disposition home or self-care (01) ==
LOC: ANHLAB 07:22
PROVIDERS: PCP Family Medicine; Visit Provider Student in an Organized Health Care Education/Training Program
DX: E03.9 Hypothyroidism, unspecified (principal)
CPT/HCPCS: 36415; 84439; 84443

== ENCOUNTER 2025-05-03 15:21 | Outpatient (CLI) | payer BC, SELFPAY ==
--- NOTE | ~2025-05-03 | XR_ITS ---
[id number] Indication: Cervicalgia; STIFF SWOLLEN NECK x2 MONTHS Comparison: None Findings: The vertebral heights are intact. No fracture or subluxation. Moderate loss of disc height C5-6. Soft tissues unremarkable Impression: No acute abnormality. Reviewed, dictated and finalized at location A. Impression: No acute abnormality.
== END 2025-05-03 15:22 | disposition home or self-care (01) ==
LOC: MICIMG 15:25
PROVIDERS: PCP Family Medicine; Visit Provider Physician Assistant Medical
DX: M54.2 Cervicalgia (principal)
CPT/HCPCS: 72040